=== PATIENT | male | born 1995 | race Hispanic/Latino ===

== ENCOUNTER 2021-10-05 14:33 | Emergency (ER) | payer BC, OTHER ==
[~2021-10-05] VITALS: Ht 165.1 cm; Wt 56.2 kg
[2021-10-05] MEDS ORDERED: DEBROX15 ML RIGHT EAR (14:51)
== END 2021-10-05 15:29 | disposition home or self-care (01) ==
LOC: ER 14:36
DX: H61.21 Impacted cerumen, right ear (principal); I12.0 Hypertensive chronic kidney disease with stage 5 chronic kidney disease or end stage renal disease; N18.6 End stage renal disease; E03.9 Hypothyroidism, unspecified; Z88.1 Allergy status to other antibiotic agents; Z91.048 Other nonmedicinal substance allergy status; Z99.2 Dependence on renal dialysis; Z85.6 Personal history of leukemia; Z92.21 Personal history of antineoplastic chemotherapy
CPT/HCPCS: 99283

== ENCOUNTER 2022-04-21 16:02 | Emergency (ER) | payer MEDICARE, OTHER ==
[~2022-04-21] VITALS: Ht 165.1 cm; Wt 56.2 kg
[~2022-04-21 16:02] MED LIST: DEBROX15 ML RIGHT EAR
[2022-04-21] MEDS ORDERED: IBUPROFEN 600 MG TAB PO STA (16:37)
[2022-04-21] MEDS ORDERED: IBUPROFEN600 MG PO (17:46)
== END 2022-04-21 18:00 | disposition home or self-care (01) ==
LOC: ER 16:23
DX: M79.671 Pain in right foot (principal); S93.691A Other sprain of right foot, initial encounter; X50.1XXA Overexertion from prolonged static or awkward postures, initial encounter; Y93.01 Activity, walking, marching and hiking; Y92.89 Other specified places as the place of occurrence of the external cause; I12.0 Hypertensive chronic kidney disease with stage 5 chronic kidney disease or end stage renal disease; N18.6 End stage renal disease; Z99.2 Dependence on renal dialysis; Z85.6 Personal history of leukemia; E03.9 Hypothyroidism, unspecified
CPT/HCPCS: 99283